=== PATIENT | female | born 1985 | race Two or more races ===

== ENCOUNTER 2024-09-10 15:07 | Emergency (ER) | payer MEDICAID, SELFPAY ==
[2024-09-10 15:18] VITALS: BP 133/83; PULSE 99; RESP 18; TEMP 36.4; O2SAT 98
--- NOTE | 2024-09-10 15:21 | XR_ITS ---
EXAMINATION: Ankle, left 3 views . Technique: Ankle AP, oblique, lateral 3 views Date and time of exam: September 10, 2024 1536 hours INDICATIONS: Patient fell 3 days ago with injury to the ankle, ankle pain. FINDINGS: No acute fracture No dislocation 5 mm plantar bony calcaneal spur IMPRESSION: No acute fracture
--- NOTE | 2024-09-10 16:12 | EDNOTE_ITS ---
Lower Extremity Injury RME/HPI General Chief Complaint: Ankle/Foot Injury Stated Complaint: Left foot pain X 3 days when walking Time Seen by Provider: 09/10/24 15:11 Source: patient Arrival date/time: 09/10/24 15:07 This is a case of 39-year-old female with history of SLE and arthritis came in in the emergency room due to left ankle pain for 3 days patient denies any injury or trauma patient is states that it has just started to have pain on the medial aspect of the left ankle with mild swelling no redness no injury noted Limitations: no limitations Related Data Previous Rx's ?Medication ?Instructions ?Recorded albuterol sulfate 90 mcg/actuation 2 puff inhalation Q 6H PRN 07/09/20 aerosol inhaler (Ventolin HFA) shortness of breath or wheezing #8.5 grams albuterol sulfate 2.5 mg/3 mL 2.5 mg (3 mL) inhalation Q6H PRN 07/16/22 (0.083 %) solution for nebulization shortness of breat h or wheezing #90 mL fluticasone propionate 220 1 puff inhalation BID #12 g raz 07/16/22 mcg/actuation HFA aerosol inhaler (Flovent HFA) prednisone 50 mg tablet 50 mg PO QDAY #3 tabs ferrous sulfate 324 mg (65 mg 324 mg PO TID #90 tabs 0 09/14/22 iron) tablet,delayed release albuterol sulfate 90 mcg/actuation 1 puff inhalation Q ID PRN 07/18/23 aerosol inhaler shortness of breath or wheez ing #8.5 grams prednisone 50 mg tablet 50 mg PO QDAY #7 tabs meloxicam 15 mg tablet 15 mg PO QDAY PRN As needed for 09/10/24 pain #10 tabs tramadol 50 mg tablet 50 mg PO Q6H PRN pain (scale score 09/10/24 7-10) #10 tabs Allergies Allergy/AdvReac Type Severity Reaction Status Date / Time No Known Allergies Allergy Verified 09/10/24 15:13 Review of Systems Review of Systems Systems Reviewed: All systems reviewed, normal except as documented Constitutional Constitutional: Reports system reviewed and no additional complaints, except as documented ENT Ears, Nose, Mouth, and Throat: Denies neck pain Cardiovascular Cardiovascular: Reports system reviewed and no additional complaints, except as documented Gastrointestinal Gastrointestinal: Reports system reviewed and no additional complaints, except as documented Musculoskeletal Musculoskeletal: Denies abnormal gait, Reports arthralgias, Denies atrophy, Denies back pain, Denies deformity, Denies joint swelling, Denies limited range of motion, Denies loss of height, Denies muscle cramps, Denies muscle weakness, Denies myalgias, Denies neck pain, Denies numbness, Denies radiating pain into limb, Denies stiffness, Denies tingling and Reports other (Left ankle pain) Neurologic Neurologic: Reports system reviewed and no additional complaints, except as documented, Denies abnormal gait, Denies numbness and Denies tingling Past Medical History Past Medical History CARDIAC: Negative Congestive Heart Failure RESPIRATORY: Positive Asthma; Negative Chronic Obstructive Pulmonary Disease (COPD) GENITOURINARY: Negative Renal Disease ENDOCRINE: Negative Diabetes Mellitus Type 1 or Diabetes Mellitus Type 2 Social History SMOKING STATUS: Never smoker ED Exam General Limitations: Present no limitations General appearance: Present alert and in no apparent distress Head Head exam: Present atraumatic, normocephalic and normal inspection Eye Eye exam: Present normal appearance, PERRL and EOMI ENT ENT exam: Present normal exam, normal oropharynx and mucous membranes moist Neck Neck exam: Present normal inspection, full ROM and trachea midline Chest Chest inspection: Present normal inspection and symmetric chest wall rise Respiratory Respiratory exam: Present normal lung sounds bilaterally; Absent respiratory distress, wheezes, stridor, accessory muscle use or prolonged expiratory phase Cardiovascular Cardiovascular exam: Present regular rate, normal rhythm and normal heart sounds Abdominal Exam Abdominal exam: Present soft and normal bowel sounds Extremities Exam Extremities exam: Present normal inspection and full ROM Expanded Lower Extremity Exam Ankle exam: Present normal inspection, full ROM and tenderness (Mild tenderness on the medial aspect of the left ankle mild swelling no crepitation no deformity no bruising no ecchymosis no dislocation no erythema ROM intact neurovascular intact) Neurovascular/Tendon exam: Present normal capillary refill; Absent motor deficit, sensory deficit, tendon deficit or foot drop Gait: observed and normal Back Exam Back exam: Present normal inspection and full ROM Neurological Exam Neurological exam: Present alert, oriented X3 and CN II-XII intact Psychiatric Psychiatric exam: Present normal affect and normal mood Skin Skin exam: Present warm, dry, intact and normal color Course Quality Measures none Orders Category Date Time Status XR ankle LT 2V Stat Exams 09/10/24 15:21 Completed Vital Signs Vital signs: Vital Signs Temperature 97.6 F 09/10/24 15:18 Pulse Rate 99 09/10/24 15:18 Respiratory Rate 18 09/10/24 15:18 Blood Pressure 133/83 H 09/10/24 15:18 Pulse Oximetry (%) 98 09/10/24 15:18 Patient is afebrile not tachycardic not tachypneic BP stable not hypoxic oxygen saturation is 98% in room air Extremity Injury, Lower MDM Narrative MDM Narrative:: This is a case of 39-year-old female with history of SLE and arthritis came in in the emergency room due to left ankle pain for 3 days patient denies any injury or trauma patient is states that it has just started to have pain on the medial aspect of the left ankle with mild swelling no redness no injury noted patient is awake alert oriented not in distress nontoxic looking noted mild tenderness on the medial aspect of the left ankle no crepitation no deformity no redness not warm to touch skin exam is normal mild swelling ROM intact motor sensory reflex were all normal neurovascular is intact x-ray showed no fracture no dislocation [place] bandage was applied patient tolerated well neurovascular intact discussed with the patient that the symptoms possible arthritis she 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 Patient verbalized no further complains explained diagnosis and answered patient question. Patient is comfortable with the proposed management plan including the need to follow up with his/her primary care physician and any specialist if applicable Discussed patient for any urgent condition or worsening sx, He/She needed to go to emergency room immediately or call 911. Patient acknowledge the responsibility to follow up as instructed and to monitor her/his symptoms. For any persistence of the symptoms for more than 3-5 days return precaution advised. Discussed the result of the test and was given printed discharge instruction Patient data External records reviewed:: [facility] previous records Clinical information provided by:: none Social determinants that could affect healthcare access:: none Patient has the following chronic illnesses:: None How is presenting disease/condition affected by chronic disease/condition?: no chronic disease Evaluation data The following diagnostics were reviewed and interpreted by me:: radiology exam(s) Lab and/or radiology exams considered but not ordered:: Reviewed Interpretation Summary: Reviewed Medications / Prescriptions Medications or Prescriptions considered but not ordered:: Given Medication administrations:: Given Consultations Consultation(s) initiated? (list below): No Diagnosis Extremity Injury, Lower Differential Diagnosis: ankle sprain and strain Most likely diagnosis given after review of the tests above:: Arthritis Admission Indicated Admission indicated?: not indicated Explain why admission is indicated or not indicated:: Not indicated Admission Request Was there a request for admission?: No Admission Attestation Admission request attestation: Not indicated Disposition Plan Disposition Plan: Discharge Discharge Attestation Discharge Attestation: The patient and all family members were given an opportunity to ask questions and understood the discharge instructions. Discharge instructions specifically effects, indications for sooner follow up or return to the emergency department, and the expected course of current diagnosis. Patient condition: Stable Discharge Plan Plan Patient Disposition: HOME (Self Care) Prescriptions/Referrals Prescriptions/Med Rec: New meloxicam 15 mg tablet 15 mg PO QDAY PRN (Reason: As needed for pain) Qty: 10 0RF Rx Instructions: Take the medication with full stomach tramadol 50 mg tablet 50 mg PO Q6H PRN (Reason: pain (scale score 7-10)) Qty: 10 0RF No Action albuterol sulfate [Ventolin HFA] 90 mcg/actuation HFA aerosol inhaler 2 puff INH Q6H PRN (Reason: shortness of breath or wheezing) Qty: 8.5 0RF prednisone 50 mg tablet 50 mg PO QDAY Qty: 3 0RF fluticasone propionate [Flovent HFA] 220 mcg/actuation HFA aerosol inhaler 1 puff inhalation BID Qty: 12 0RF albuterol sulfate 2.5 mg /3 mL (0.083 %) solution for nebulization 2.5 mg inhalation Q6H PRN (Reason: shortness of breath or wheezing) Qty: 90 0RF ferrous sulfate 324 mg (65 mg iron) tablet,delayed release (DR/EC) 324 mg PO TID Qty: 90 0RF prednisone 50 mg tablet 50 mg PO QDAY Qty: 7 0RF albuterol sulfate 90 mcg/actuation HFA aerosol inhaler 1 puff inhalation QID PRN (Reason: shortness of breath or wheezing) Qty: 8.5 0RF Problem List Clinical Impression: Ankle pain, left, Arthritis Patient/Caregiver Discharge Instructions Education Materials: Arthritis: Exercise, ED KASHMIR Wrap, ED RICE Additional Instructions: Follow-up with your business process manager for further evaluation and treatment of the arthritis of the left ankle follow-up with your primary care physician in 2 days for reevaluation for any worsening symptoms or any emergent concern return in the emergency room immediately or call 911 warm compress and ice pack as needed for pain was advised no weightbearing on the left ankle elevate to decrease swelling keep the [place] bandage in place until cleared by your primary care p jeff Print Language: Cypriot Stand Alone Forms: Karyn Award Info., Patient Portal Info Letter PA/LOCATION DIRECTOR Supervising Physician PA/OLINDA Supervising Physician: dr garcia
== END 2024-09-10 17:16 | disposition home or self-care (01) ==
LOC: SERX 16:24
PROVIDERS: Emergency Provider Emergency Medicine; PCP Nurse Practitioner Family
DX: M19.072 Primary osteoarthritis, left ankle and foot (principal)
CPT/HCPCS: 73600; 73610; 99283